=== PATIENT | female | born 2000 | race Caucasian/White ===

== ENCOUNTER 2023-03-31 00:45 | Inpatient (IN) | payer SELFPAY ==
[2023-03-31] VITALS (40 sets, daily range): BP systolic 103–144; BP diastolic 62–86; PULSE 93–164; RESP 15–18; TEMP 36.4–37.2; O2SAT 93–100; BMI 31.6
--- NOTE | 2023-03-31 | PLAC_PTH ---
PATIENT: DORA MIX LOC: [facility] U#:[id number] AGE/SX: 23/ ROOM: [facility] RE03/31/[address]: Dr. Sharon Allen, MDDOB: 2000 BED: 1 DIS: 04/01/2023 SPEC #: [id number] RECD: 03/31/23 03:32 STATUS: [place] CHRIS #: [id number] ANISH: 03/31/23 00:[address]: Sharon Allen DEPT: SURGICAL PATHOLOGY RECD BY: Ezra Lopez ENTERED: 03/31/23 08:00 SP TYPE: PLACENTA OTHR DR: Dr. Bobby Jacobs MD Tissues: Placenta, NOS Procedures: Surgery Specimen Level V HEADER OPERATION: Vaginal delivery PRE-OP DIAGNOSIS: Placental abruption suspected, delivery TISSUE SUBMITTED: Placenta MICROSCOPIC DIAGNOSIS Rudolph placenta (487 gm): Umbilical cord - trivascular with no inflammation. Placental membranes - mild chronic decidual inflammation. Placental disc - foci of organizing intraparenchymal hemorrhage and intravillous congestion. AM:giana 04/04/2023 MICROSCOPIC DESCRIPTION Slides are reviewed. GROSS DESCRIPTION SPECIMEN: PLACENTA / CLINICAL INFORMATION: A. Weight: 2.835 kg B. Gestational Age: 36 weeks C. Sex: Female PLACENTAL WEIGHT (POST FIXATION): 487 gm PLACENTAL DIMENSIONS: 15.0 x 15.0 x 3.5 cm PLACENTAL SHAPE: Usual ovoid PLACENTAL WEIGHT FOR GESTATIONAL AGE: Within 10-99th percentile MEMBRANES - Present A. Insertion: Marginal B. Site of rupture from edge: At edge of placental disc C. Color of membrane: Devine-west D. Abnormalities: None UMBILICAL CORD - Present A. Color: Devine-west B. Insertion: Eccentric C. Length: 26.0 cm D. Diameter: 1.2 cm E. Number of vessels: Three F. Abnormalities: None PLACENTAL DISC - Present A. Color of surface: Devine-west B. surface abnormalities: None C. Maternal cotyledons: Intact with minimal tears D. Attached retro placental clot: No clot E. Cut surface: Dark red and spongy F. Lesions: Serial sections reveal two devine-white lesion ranging in size from 1.5 to 1.7 cm. G. Separate clot: 16.0 x 8.0 x 1.5 cm SECTIONS SUBMITTED: 1. Umbilical cord ( end) 2. Umbilical cord, placental end (maternal) 3. Membrane roll 4. Placental disc, and maternal surfaces, lesion 5. Placental disc, and maternal surfaces, lesion 6. Placental disc, and maternal surfaces AM:giana 04/01/2023 TC:3 CPT: 17618
[2023-03-31] MEDS: Lactated Ringers 1,000 ML 200 ML IV (01:25)
[2023-03-31 01:36] LABS: Absolute Lymphocyte Count 1.43 X10^3/uL (0.83-4.51); Absolute Neutrophil Count 13.8 X10^3/uL (2.0-7.7); Basophil# 0.02 X10^3/uL; Basophil% 0.1 % (0-1); Eosinophil# 0.01 X10^3/uL; Eosinophils% 0.1 % (0-5); Hematocrit 40.1 % (37-47); Hemoglobin 13.7 g/dL (12.0-15.0); Lymphocyte # 1.43 X10^3/ul (0.83-4.51); Lymphocyte % 8.9 % (19-41); Mean Corp Hgb Conc 34.2 g/dL (32-36); Mean Corpuscular Hgb 30.4 pg (27.0-32.0); Mean Corpuscular Volume 89.1 fL (81-99); Monocyte# 0.58 X10^3/uL; Monocyte% 3.6 % (0-10); NRBC Flagged by Analyzer 0 % (0-5); Neutrophil # 13.84 X10^3/uL (2.7-7.7); Neutrophil % 86.5 % (47-70); Platelet Count 212 K/mm3 (150-450); RBC Distribution Width CV 12.9 % (11.6-14.6); RBC Distribution Width SD 41.1 fl (35.1-43.9)
[2023-03-31] MEDS: Oxytocin 10 UNITS/ML Vial IM (01:57)
[2023-03-31] MEDS: Oxytocin 15 Units/NS 250ml 15 UNITS/250 ML IV.SOLN 83 UNITS IV (01:57)
[2023-03-31] MEDS: Lidocaine 1% (20 ml mdv) 20 ML Vial INFILT (01:57)
[2023-03-31] MEDS: Methylergonovine 0.2 MG/ML Ampul IM (02:24)
--- NOTE | 2023-03-31 02:27 | PCM.HP.OB ---
HPI - General General Date of Admission: 03/31/23 HPI Narrative DORA MIX, is a 23 F @ 36.5 weeks who presents with c/o ctx, on exam found to be Anterior lip, bulging membranes with bright red vaginal bleeding. pt has h/o previous cs for breech planning TOLAC PFSH PFSH Home Medications fluoxetine 20 mg capsule 20 mg PO DAILY 03/24/17 [History Last Taken Unknown] Allergy/AdvReac Type Severity Reaction Status Date / Time No Known Allergies Allergy Verified 03/24/17 00:23 Social History Smoking Status: Never smoker Vital Signs Vital Signs Vital Signs: 03/31/23 01:04 03/31/23 01:06 03/31/23 01:06 Temperature Temperature Source Tympanic Pulse Rate 104 H Blood Pressure 144/84 H BP Systolic 144 BP Diastolic 84 Pulse Ox 03/31/23 01:06 03/31/23 01:04 03/31/23 01:04 Temperature 98.9 F Temperature Source Tympanic Pulse Rate Blood Pressure BP Systolic BP Diastolic Pulse Ox 93 03/31/23 01:04 03/31/23 01:24 03/31/23 01:24 Temperature 98.9 F Temperature Source Pulse Rate 93 Blood Pressure 127/86 H BP Systolic 127 BP Diastolic 86 Pulse Ox 03/31/23 01:24 03/31/23 01:24 03/31/23 01:24 Temperature 98.3 F Temperature Source Temporal Pulse Rate Blood Pressure BP Systolic BP Diastolic Pulse Ox 96 03/31/23 01:50 03/31/23 01:50 Temperature Temperature Source Pulse Rate 93 Blood Pressure BP Systolic BP Diastolic Pulse Ox 98 Weight Weight: 78.471 kg Body Mass Index (BMI) 31.6 Physical Exam Const alert and oriented x3 General Appearance: cooperative HEENT normocephalic GI GI Narrative: Gravid, non tender to palpation. OB / External & Speculum: external exam normal Extremity normal to inspection Skin no rashes or lesions noted Neuro oriented x3 and CN's II-XII intact bilaterally Psych Appearance: grossly normal Labs Labs Labs: Blood Type Pending Antibody Screen NEGATIVE Hct 40.1 % (37-47) Hgb 13.7 g/dL (12.0-15.0) Syphilis Total Ab Pending Assessment & Plan (1) 36 weeks gestation of : (2) labor in third trimester: (3) Previous section complicating : PLAN: Plan Admit to L&D Montior FHR/TOCO Monitor VS Anticipate successful AROM - fluid appeared clear
--- NOTE | 2023-03-31 02:30 | EX.PCM.OBRPT ---
Vaginal Delivery Maternal Presentation Maternal Presentation: Active Labor Operative Information Date of Procedure: 03/31/23 Pre-Operative Diagnosis: labor, 36.5 weeks gestation, Previous c/s Post-Operative Diagnosis: same, live female Surgery / Procedure Performed: Type of Anesthesia: None Estimated Blood Loss: 300 Time of Delivery: 01:54 Findings Description of Procedure: I was called upon patient's arrival and evaluation. Patient was found to be anterior lip with bulging membranes bright red vaginal bleeding. Upon my arrival patient was fully dilated bulging membranes. AROM was performed fluid appeared to be clear. Good maternal pushing efforts delivered the infant's head followed by gentle downward traction to deliver the anterior shoulder followed by the rest the 's body. The infant was placed on the mother's chest for immediate skin to skin and delayed cord clamping was performed. was vigorous at time of delivery. Cord was then clamped and cut. IM Methergine was given. Placenta was then delivered and at this time large blood clots were noted, partial abruption suspected. At this time 18cc 1% lidocaine was injected for repair. She had a second-degree perineal laceration and a left labial laceration. The left labial laceration was repaired using a 3-0 Rapide in a running fashion. The second-degree laceration was repaired in the usual fashion using 2-0 Vicryl and 3-0 Rapide to close the skin. Excellent hemostasis was appreciated. Patient then received IM Methergine for some heavier bleeding noted after. Small amount of clots were evacuated. Patient tolerated the procedure well. Presentation: Vertex Amniotic Membrane Rupture Type: Artificial Amniotic Fluid Description: Clear Placental Delivery Description: Spontaneous Placenta Disposition: Routine to Lab Specimen(s) Removed: Placenta Cord Vessel Description: 3 Vessels Cord Entanglement: None A Gender: Female (1 minute): 8 (5 minute): 8 Delayed Cord Clamping: Yes Post Vaginal Delivery Medications Given After Delivery: IM Pitocin and IM Methergin Laceration: Perineal Extension/lac and 2nd degree (And had a small left labial laceration) Complication Complications: None
[2023-03-31 02:51] LABS: Syphilis Antibodies Non-reactive
[2023-03-31 03:57] LABS: Pathology Specimen OB SEE PATHOLOGY REPORT
[2023-03-31] MEDS: 0.9% Saline Lock 10 ML Syringe IV (05:00)
[2023-03-31] MEDS: Acetaminophen 500 MG Tablet 1000 MG PO (22:40)
[2023-04-01 01:35] VITALS: BP 105/64; PULSE 90; RESP 17; TEMP 37; O2SAT 99
--- NOTE | 2023-04-01 07:45 | PCM.PN.OB ---
Subjective Subjective Patient is doing well this morning. She denies lightheadedness, dizziness, chest pain, shortness of breath, leg pain. She is ambulating and voiding without difficulty. She is eating without nausea or vomiting. Lochia is normal. She desires discharge today. Objective Data Objective Data Vital Signs: Vital Signs Temp Pulse Resp BP Pulse Ox O2 Del Method 98.6 F 90 17 105/64 99 Room Air 04/01/23 01:35 04/01/23 01:35 04/01/23 01:35 04/01/23 01:35 04/01/23 01:35 04/01/23 01:35 Oxygen Delivery Method Room Air Weight: 173 lb Body Mass Index (BMI) 31.6 Intake & Output: Intake and Output for Last 24 Hours 03/30/23 03/31/23 04/01/23 23:59 23:59 23:59 Intake Total 546.67 / 546.67 Output Total 1250 / 1250 Balance -703.33 / -703.33 Lab / Micro Data 03/31/23 01:25 Physical Exam Const alert and no apparent distress General Appearance: comfortable Resp normal respiratory effort GI soft to palpation, non-tender and non-distended GI Narrative: FF@U-1 Extremity normal to inspection and no calf tenderness Assessment & Plan (1) Vaginal delivery: PLAN: Patient is day 1 from a vaginal after prior section. The patient and are doing well. The patient desires discharge and discharge instructions were reviewed.
--- NOTE | 2023-04-01 07:47 | DCINST_ITS ---
Discharge Instructions Diet Discharge Diet: No restrictions Activity Discharge Activity: May Shower May resume sexual activity in: 6 weeks Ice area for (Minutes): 15 Weight Bearing Status: Weight bearing as tolerated Lifting Restrictions: nothing heavier than baby Dressing / Incision Call your doctor if you observe: Fever of 101 or Higher, Coldness, Increased Pain, Numbness or Tingling, Change in Color, Inability to urinate, Inability to have a bowel movement, Using more than 1 pad per hour, Shortness of breath, Dizziness, Fainting spells, Swelling in the ankles, Chest pain, Increased palpitations (irregular heartbeat), Calf discomfort and Uncontrolled pain Cleanse incision/area with: Soap & Water Follow Up Care When: 1-2 weeks for early 6 week exam Test Results: Test results from this visit will be discussed in further detail at your follow- up appointment, if applicable. Discharge Plan Admission Admit Date/Time: 03/31/23 00:45 Primary Reason for Your Visit: delivery Attending Provider: Sharon Allen Primary Care Provider: Bobby Jacobs Instructions Patient Instructions: After a Vaginal Discharge Orders/Prescriptions Prescriptions: Continued PNV cmb#[id number]-ferrous fumarate-FA [] 28 mg iron- 800 mcg tablet 1 tab PO DAILY Referrals / Follow Up: Bobby Jacobs MD [Primary Care Provider] - Disposition Disposition (needs filled in before D/C Order can be placed): Home, Self Care
[2023-04-01 08:07] VITALS: BP 104/59; PULSE 86; RESP 16; TEMP 37; O2SAT 97
--- NOTE | 2023-04-01 10:34 | CASEMGMT ---
Social Work Assessment Labor and Delivery Unit Patient Address[address] [place] [address] Phone number: [phone] Date of Referral: 03/31/23 Time of Referral:? [id number] Referred By: Sharon Lagos Date of Intervention: ??04/01/23 Time of Intervention:? 929 Reason for Referral:hx depression Sw completed chart review and acknowledges social work consult entered due to maternal history of depression. Sw presesnted to bedside, introduced self to mother of baby (MOB- Milagros) and father of baby (FOB- Dionicio). Sw explained reason for sw involvement. Sw completed psychosocial assessment. Sw asked FOB to step out momentarily so that MOB could compelte [place] Depression Scale. History obtained from: medical records and mother of baby (MOB)?and FOB?? Household composition: MOB states that currently residing in their home is MOB, FOB, their first child and now baby. MOB denies anyone else living with family at this time. MOB states their housing is safe and adequate- no concerns expressed at this time. Patient's parent/guardian status:? MOB states that she and FOGuerda have been for two years. [place] baby is their second baby together. FOB was active at delivery and involved in infant care. While meeting with MOB privately, sw assessed for any concerns of domestic violence or intimate partner violence, and MOB denies both at this time. ? Medical History: MOB is 2, para 1- now 2. MOB received care during with [facility]. MOB delivered baby via on 03/31/23. Baby girl, named Jolanta, was born at 36 weeks gestation weighing 6lb and 4oz and her apgars were 8 and 8 at one and five minutes of life respectfully. Baby will be followed by Dr. Dove for pediatric care. Baby is doing well medically, no concerns noted and may be ready for discharged today. Educational Status:?Both parents completed 8th grade. Financial Status: FOGuerda reports that he works on exteriors, doing siding, he is able to take some time off of work now that the baby has been born. Infant Supplies:MOB states that they have obtained all necessary baby items including: safe sleep space, clothes, diapers, wipes, car seat and a breast pump. Childcare/Caregiver(s):?LOUIE is a stay at home mom and will be baby's primary caregiver. Transportation:?? parents are Ed[place] and state that they use a warehouse associate driver or their horse and buggy to get where they need to go. Programs/Agencies Involved: ??Family is not connected or involved with any community agencies that provide financial assistance at this time. List of [place] resources was provided to parents should any needs present themselves. ? Children Services/Legal Issues:??No history of Children Services involvement. No issues or concerns warranting a referral at this time. ? Behavioral Health Issues: ??Mental Health History:??FOB denies mental health diagnoses at this time. LOUIE states that she has a history of depression when she was younger and was on medication temporarily. MOB states that she has not had any struggles with her depression now going on 4 years. Brandon educated parents on signs and symptoms of baby blues and depression/ anxiety. Brandon asked LOUIE if she has any trauma history, including sex abuse, to which MOB denied. ? Substance Use History:?MOB denies substance use prior to and during . ? Family History:?MOB denies family history of substance use and mental health diagnoses. LOUIE states that she has a grandma who struggled with depression, however she lost several family members close to her in a short period of time and was grieving. ? Drug Screens: ?No urine screens observed in chart review. Family/Social Stressors:? None disclosed at this time. Support Systems: LOUIE states that she has lots of friends, but her primary support system is her family Depression/Shaken Baby/Safe Sleeping:? Brandon educated parents and provided literature on signs and symptoms of baby blues and depression/ anxiety. Parents expressed understanding. LOUIE stated that FOB is a big support person for her and helps her a lot. Sw educated parents on shaken baby prevention and ABCS of safe sleep. Parents expressed understanding. ASSESSMENT:? LOUIE is currently admitted following labor and delivery of her second baby. MOB and FOB have all necessary baby supplies and natural supports in place to help them when they are discharged to home. MOB with mental health history positive for depression. LOUIE denies having experienced baby blues or depression/ anxiety following the of her first baby. Parents were quiet, MOB more open than FOB. MOB receptive to involvement and support provided by social work. PLAN:? MOB and baby to be discharged today when medically ready. ?No other services requested or indicated. Naun Carpenter, ONCOLOGY SPECIALIST, ADULT SPECIALIST
[2023-04-01 13:50] VITALS: BP 103/48; PULSE 88; RESP 16; TEMP 37; O2SAT 96
[2023-04-01 17:50] VITALS: RESP 16
== END 2023-04-01 17:50 | disposition home or self-care (01) | DRG 805 ==
PROVIDERS: Admitting Provider Obstetrics & Gynecology; PCP Family Medicine; Visit Provider Obstetrics & Gynecology
DX: O34.211 Maternal care for low transverse scar from previous cesarean delivery (principal); Z37.0 Single live birth; O60.14X0 Preterm labor third trimester with preterm delivery third trimester, not applicable or unspecified; O70.1 Second degree perineal laceration during delivery; Z3A.36 36 weeks gestation of pregnancy
CPT/HCPCS: 59025; 59050; 85025; 86780; 86850; 86900; 86901; 88307; 99221; J7120; A4216; G0378